=== PATIENT | male | born 1940 | race Caucasian/White ===

== ENCOUNTER 2017-12-21 04:35 | Inpatient (IN) | payer MEDICARE ==
[~2017-12-21] VITALS: Ht 180.3 cm; Wt 80.7 kg
[2017-12-21] MEDS ORDERED: AMIODARONE HCL 900 MG in DEXT 5% WATER 500 ML IV ONE (05:30)
[2017-12-21] MEDS ORDERED: AMIODARONE HCL 150 MG in DEXT 5% WATER 100 ML IV ONE (05:30)
[2017-12-21 05:50] LABS: BASOPHILS % 0.3 % (0.0-2.0); HEMATOCRIT. 40.7 % (42.0-52.0); HEMOGLOBIN. 13.5 g/dL (14.0-18.0); LYMPHOCYTES % 11.6 % (20.0-50.0); MEAN CORPUSCULAR HEMOGLOBIN 32.6 pg (28.0-32.0); MEAN CORPUSCULAR VOLUME 98.2 fL (80.0-94.0); MEAN PLATELET VOLUME 9.6 fl (7.4-10.4); MONOCYTES % 7.2 % (2.0-8.0); NEUTROPHILS % 79.9 % (40.0-76.0); PLATELET 202 x1000/uL (130-400); RED BLOOD CELL COUNT 4.14 mill/uL (4.7-6.1); RED CELL DISTRIBUTION WIDTH 15.6 % (11.6-14.6)
[2017-12-21 05:51] LABS: INR 1.6; PROTHROMBIN TIME 15.5 sec (9.1-11.1)
[2017-12-21 05:59] LABS: CHLORIDE 109 mEq/L (98-107)
[2017-12-21] MEDS ORDERED: SODIUM CHLORIDE 0.9% 1,000 ML IV SCH (07:19)
[2017-12-21] MEDS ORDERED: HYDROCODONE/ACETAMINOPHEN 5/325MG TABLET PO PRN (07:30)
[2017-12-21] MEDS ORDERED: DOCUSATE SODIUM 100MG CAPSULE PO PRN (07:30)
[2017-12-21] MEDS ORDERED: ACETAMINOPHEN 325MG TABLET PO PRN (07:30)
[2017-12-21] MEDS ORDERED: ONDANSETRON HCL 4MG/2ML INJ IV PRN (07:30)
[2017-12-21] MEDS ORDERED: ENOXAPARIN 40MG/0.4ML SYR SUBCUT SCH (07:30)
[2017-12-21] MEDS ORDERED: DIGOXIN 500MCG/2ML AMP IV ONE (08:30)
[2017-12-21 12:15] VITALS: BP 131/88
[2017-12-21 13:37] VITALS: BP 131/88
[2017-12-21 13:52] VITALS: BP 131/88
[2017-12-21 14:30] VITALS: BP 119/80
[2017-12-21] MEDS ORDERED: RIVAROXABAN 20 MG TABLET PO SCH (17:00)
== END 2017-12-21 14:30 | disposition home or self-care (01) | DRG 683 ==
LOC: ER 04:35 → 3WST 05:38 → EDBEDREQTM 05:46 → EDBEDREQSVC 05:46 → EDBEDREQ 05:46 → ENRESERV 10:52
PROVIDERS: ADMIT Hospitalist; ATTEND Hospitalist
DX: N17.9 Acute kidney failure, unspecified (principal); I47.1 Supraventricular tachycardia; R65.10 Systemic inflammatory response syndrome (SIRS) of non-infectious origin without acute organ dysfunction; I48.91 Unspecified atrial fibrillation; I10 Essential (primary) hypertension; I25.10 Atherosclerotic heart disease of native coronary artery without angina pectoris; E78.5 Hyperlipidemia, unspecified; G47.30 Sleep apnea, unspecified; E11.9 Type 2 diabetes mellitus without complications; N28.9 Disorder of kidney and ureter, unspecified; Z95.0 Presence of cardiac pacemaker; Z87.891 Personal history of nicotine dependence; Z88.1 Allergy status to other antibiotic agents; Z98.61 Coronary angioplasty status; Z79.01 Long term (current) use of anticoagulants
CPT/HCPCS: 36415; 71045; 78580; 82962; 83880; 84484; 93005; 93970; 96365; 99291; J0282; J7060